=== PATIENT | male | born 1975 | race Caucasian/White ===

== ENCOUNTER 2017-09-28 13:00 | Emergency (ER) | payer SELFPAY ==
[~2017-09-28 13:00] MED LIST: GUAI100S6 PO; PRED20 PO; Z.0.NO CURRENT MEDS
[2017-09-28 13:31] VITALS: BP 134/60; PULSE 61; RESP 17; TEMP 98.6; O2SAT 96
--- NOTE | 2017-09-28 17:00 | PD ---
Data Data Last Documented VS Vital Signs Date Time Temp Pulse Resp B/P (MAP) Pulse Ox O2 Delivery O2 Flow Rate FiO2 09/28/17 13:31 98.6 61 17 134/60 (84) 96 Orders Orders Complete Blood Count With Diff (09/28/17 16:50) Basic Metabolic Panel (Bmp) (09/28/17 16:50) Blood Gas Carboxyhemoglobin (09/28/17 16:50) MDM Supervised Visit with VLAD: Yes Narrative Course The history, exam, and medical decision-making in the associated midlevel provider note were completed with my assistance. I reviewed and agree with the findings presented. I attest that I had a [id number] encounter with the patient on the same day, and personally performed and documented my assessment and findings in the medical record. *My assessment and Findings: This is a 42-year-old male who presents to the emergency department with headaches that have been going on for 1 month. The patient has been intermittently sleeping in a van which is moldy and he thinks this may have been the cause of his headaches. He has a normal neurologic exam. He says he feels very weak and generally fatigued. Plan for labs and a carboxyhemoglobin. If these are normal and do not think any neuroimaging is warranted as his headache is subacute and he has no acute neurologic findings. Patient can be discharged and can follow-up with [facility]. Mary Puentes MD Sep 28, 2017 17:00
[2017-09-28 17:08] VITALS: BP 138/81; PULSE 54; RESP 16; O2SAT 100
--- NOTE | 2017-09-28 17:10 | PD ---
HPI Chief Complaint: Headache Time Seen by Provider: 16:21 Travel History International Travel<30 days: No Contact w/Intl Traveler<30days: No Traveled to known affect area: No History of Present Illness HPI Patient is a 42-year-old male presenting to emerge from for evaluation of left sided headache, fatigue. Patient states his symptoms started several weeks to a month ago, initially this started when he was sleeping in his van that had mold in it, he then got a new vehicle initially felt better than he noticed mold in this van as well. For the last week he has been sleeping at the [employer] where he works he continues to have the symptoms. Patient states his headache pain is dull and constant, there are no alleviating or exacerbating factors. Headache does not wake him from sleep. Patient reports sleeping well at night. He denies any nasal congestion, cough, chest congestion , fever, chills. He states he is fatigued and can sleep all day. Patient reports pain is a 4-5 out of 10, dull and aching. [facility] Past Medical History Medical History: Denies Significant Hx Immunizations Current: Yes Past Surgical History Other Surgery: Yes (VASECTOMY, UMBILICAL HERNIA REPAIR, DEVIATED SEPTAL REPAIR) Social History Alcohol Use: No Tobacco Use: No Substance Use: No Allergies-Medications (Allergen,Severity, Reaction): Coded Allergies: No Known Allergies (Verified Adverse Reaction, Unknown, 09/28/17) Reported Meds & Prescriptions Reported Meds & Active Scripts Active Robitussin Ac (Guaifenesin/Codeine Phosphate) Syrp 5-10 Ml PO Q6HPRN Deltasone (Prednisone) 20 Mg Tab 40 Mg PO DAILY Reported No Current Meds (Miscellaneous Medication) [facility] [place] Review of Systems Except as stated in HPI: all other systems reviewed are Neg General / Constitutional: Positive: Other (Fatigue), No: Fever, Chills Eyes: No: Blurred Vision HENT: Positive: Headaches, No: Sore Throat, Rhinorrhea, Congestion, Neck Pain Cardiovascular: No: Chest Pain or Discomfort Respiratory: No: Shortness of Breath Gastrointestinal: No: Nausea, Vomiting, Abdominal Pain Musculoskeletal: No: Myalgias Neurologic: Positive: Headache, No: Dizziness Physical Exam Narrative GENERAL: Well-developed, well-nourished, alert male. Presenting in no acute distress. SKIN: Warm and dry. HEAD: Atraumatic. Normocephalic. No tenderness to palpation over sinuses. EYES: Pupils equal and round. No scleral icterus. No injection or drainage. ENT: No nasal bleeding or discharge. Mucous membranes pink and moist. NECK: Trachea midline. No JVD. CARDIOVASCULAR: Regular rate and rhythm. RESPIRATORY: No accessory muscle use. Clear to auscultation. Breath sounds equal bilaterally. GASTROINTESTINAL: Abdomen soft, non-tender, nondistended. Hepatic and splenic margins not palpable. MUSCULOSKELETAL: Extremities without clubbing, cyanosis, or edema. No obvious deformities. NEUROLOGICAL: Awake and alert. No obvious cranial nerve deficits. Motor grossly within normal limits. Five out of 5 muscle strength in the arms and legs. Normal speech. PSYCHIATRIC: Appropriate mood and affect; insight and judgment normal. Data Data Last Documented VS Vital Signs Date Time Temp Pulse Resp B/P (MAP) Pulse Ox O2 Delivery O2 Flow Rate FiO2 09/28/17 17:08 54 16 138/81 (100) 100 Room Air 09/28/17 13:31 98.6 Orders Orders Complete Blood Count With Diff (09/28/17 16:50) Basic Metabolic Panel (Bmp) (09/28/17 16:50) Blood Gas Carboxyhemoglobin (09/28/17 16:50) Labs Laboratory Tests Test 09/28/17 17:08 09/28/17 17:14 White Blood Count 6.2 TH/MM3 Red Blood Count 4.70 MIL/MM3 Hemoglobin 13.6 GM/DL Hematocrit 40.0 % Mean Corpuscular Volume 85.1 FL Mean Corpuscular Hemoglobin 29.0 PG Mean Corpuscular Hemoglobin Concent 34.1 % Red Cell Distribution Width 13.3 % Platelet Count 251 TH/MM3 Mean Platelet Volume 6.9 FL Neutrophils (%) (Auto) 54.1 % Lymphocytes (%) (Auto) 32.0 % Monocytes (%) (Auto) 10.2 % Eosinophils (%) (Auto) 2.9 % Basophils (%) (Auto) 0.8 % Neutrophils # (Auto) 3.3 TH/MM3 Lymphocytes # (Auto) 2.0 TH/MM3 Monocytes # (Auto) 0.6 TH/MM3 Eosinophils # (Auto) 0.2 TH/MM3 Basophils # (Auto) 0.0 TH/MM3 CBC Comment DIFF FINAL Differential Comment Blood Urea Nitrogen 21 MG/DL Creatinine 1.16 MG/DL Random Glucose 71 MG/DL Calcium Level 8.5 MG/DL Sodium Level 143 MEQ/L Potassium Level 3.7 MEQ/L Chloride Level 106 MEQ/L Carbon Dioxide Level 27.9 MEQ/L Anion Gap 9 MEQ/L Estimat Glomerular Filtration Rate 68 ML/MIN Arterial Blood Carboxyhemoglobin 0.9 % MDM Medical Decision Making Medical Screen Exam Complete: Yes Emergency Medical Condition: Yes Interpretation(s) Vital Signs Date Time Temp Pulse Resp B/P (MAP) Pulse Ox O2 Delivery O2 Flow Rate FiO2 09/28/17 13:31 98.6 61 17 134/60 (84) 96 Differential Diagnosis Sinusitis versus allergic rhinitis versus metabolic abnormality versus other Narrative Course Patient is a 42-year-old male that presented to emerge from for evaluation of a dull headache and fatigue. Patient related this to sleeping in his van which was moldy. Patient is well-appearing, his vital signs are stable. Discussed findings with my attending physician. We will obtain basic labs, there is no need for an emergent CT scan of the brain. Patient has no focal deficits on exam. Labs reviewed, no acute findings identified. Patient will be referred to the [facility] for further evaluation and routine health care. Patient was encouraged to avoid potential allergens. He was encouraged to trial [id number] Zyrtec or Claritin as needed and as directed. Patient verbalized understanding of discharge instructions. Patient stable for discharge. Diagnosis Primary Impression: Headache Qualified Codes: R51 - Headache Additional Impression: Fatigue Qualified Codes: R53.83 - Other fatigue Referrals: [facility] 1 week Patient Instructions: Allergies (ED), General Headache (ED), General Instructions Additional Instructions: Follow-up at the [facility] for routine health care Take ibuprofen as needed and as directed for headache pain Trial [id number] Claritin or Zyrtec as well as Nasonex or Flonase or similar agents as directed for possible environmental allergens. Return to emergency department for any new or worsening symptoms Med/Other Pt SpecificInfo: Prescription(s) given Scripts Ibuprofen (Ibuprofen) 800 Mg Tab 800 MG PO Q6HR Y for PAIN, #40 TAB 0 Refills Prov: Nidia Clifford 09/28/17 Disposition: 01 DISCHARGE HOME Condition: Stable Nidia Clifford Sep 28, 2017 17:10
[2017-09-28 17:28] LABS: AUTOMATED NEUTROPHIL # 3.3 TH/MM3 (1.8-7.7); BASOPHIL % 0.8 % (0.0-2.0); EOSINOPHIL # 0.2 TH/MM3 (0-0.4); EOSINOPHIL % 2.9 % (0.0-4.0); HEMOGLOBIN 13.6 GM/DL (13.0-17.0); MEAN CELL VOLUME 85.1 FL (80.0-100.0); MEAN CORPUSCULAR HGB CONC 34.1 % (32.0-36.0); MEAN PLATELET VOLUME 6.9 FL (7.0-11.0); MONO % 10.2 % (0.0-8.0); MONOCYTE # 0.6 TH/MM3 (0-0.9); NEUT % 54.1 % (16.0-70.0); PLATELET COUNT 251 TH/MM3 (150-450); RED CELL DISTRIBUTION WIDTH 13.3 % (11.6-17.2); WHITE BLOOD COUNT 6.2 TH/MM3 (4.0-11.0)
[2017-09-28 17:57] LABS: BICARBONATE 27.9 MEQ/L (21.0-32.0); CALCIUM 8.5 MG/DL (8.5-10.1); CREATININE 1.16 MG/DL (0.60-1.30)
[2017-09-28] MEDS ORDERED: IBUP1TAB7 PO (18:40)
== END 2017-09-28 19:03 | disposition home or self-care (01) ==
LOC: NEPD 13:00
DX: R51 Headache (principal); R53.83 Other fatigue
CPT/HCPCS: 80048; 82375; 85025; 99283